=== PATIENT | female | born 1940 | race Caucasian/White ===

== ENCOUNTER → 2020-03-23 17:18 | Outpatient (CLI) | payer MEDICARE, OTHER, SELFPAY | PROVIDERS: Family Provider Physician Assistant Medical; PCP Physician Assistant Medical; Referring Provider Orthopaedic Surgery; Visit Provider Orthopaedic Surgery | DX: M25.561 Pain in right knee (principal); Z53.9 Procedure and treatment not carried out, unspecified reason ==

== ENCOUNTER → 2020-03-27 18:12 | Outpatient (CLI) | payer MEDICARE, OTHER, SELFPAY ==
--- NOTE | 2020-03-27 | DI.MRI.S_ITS ---
PROCEDURE: MR KNEE RT WO CON INDICATIONS: CHRONIC RIGHT KNEE PAIN TECHNIQUE: Noncontrast sagittal PD fast spin echo and T2 fast spin echo with fat saturation, sagittal 3-D FLASH with fat saturation; coronal T1 spin echo and PD fast spin echo with fat saturation, and axial PD fast spin echo with fat saturation through the knee. COMPARISON: None. FINDINGS: Image quality: Excellent. Menisci: There is lateral meniscal extrusion and severe degenerative tear. The lateral meniscus is truncated. Ill-defined tear is seen in the body and posterior whole of the medial meniscus. The meniscal root ligaments appear intact. Cruciate ligaments: The anterior and posterior cruciate ligaments appear intact. Medial structures: The medial collateral ligament appears intact. The semimembranosus tendon insertions and meniscocapsular junction appear intact. Visualized portions of the pes anserinus tendons appear normal. No abnormal bursal fluid. Lateral structures: The lateral collateral ligament and the biceps femoris tendon appear intact. The popliteus tendon appears normal. Iliotibial band appears normal. Anterior structures: The quadriceps and patellar tendons appear intact. Patellar alignment is normal. No femoral trochlear dysplasia or ventral trochlear prominence. No edema in the infrapatellar fat pad. Bones and cartilage: No fractures. There is severe cartilage thinning in the lateral femorotibial compartment with bone on bone. Full-thickness cartilage fissures are also present in the medial femorotibial compartment. Mild cartilage loss of the patellofemoral compartment. Joint space: There is small to moderate knee joint esion. A small Serrano's cyst is present with adjacent fluid signal suggesting leakage. Normal appearing synovial plicae are incidentally noted. IMPRESSION: 1. Severe degenerative tear of the lateral meniscus. 2. Ill-defined tear of the body and posterior horn of the medial meniscus. 3. Severe loss of cartilage in the lateral femorotibial compartment with [id number]. Full-thickness cartilage fissures are also present in the medial femorotibial compartment. 4. [id number] knee joint effusion. 5. Small Serrano cyst. Dictated by: Tita Alexandra M.D. on 03/27/2020 at 20:13 Approved by: Tita Alexandra M.D. on 03/28/2020 at 9:30
== END ==
PROVIDERS: Family Provider Physician Assistant Medical; PCP Physician Assistant Medical; Referring Provider Orthopaedic Surgery; Visit Provider Orthopaedic Surgery
DX: M25.561 Pain in right knee (principal); S83.281A Other tear of lateral meniscus, current injury, right knee, initial encounter; S83.241A Other tear of medial meniscus, current injury, right knee, initial encounter; M25.461 Effusion, right knee; M71.21 Synovial cyst of popliteal space [Baker], right knee; G89.29 Other chronic pain
CPT/HCPCS: 73721

== ENCOUNTER → 2020-04-04 14:43 | Outpatient (CLI) | payer MEDICARE, OTHER, SELFPAY ==
[2020-04-04 15:14] LABS: Bacteria Urine None Seen
[2020-04-04 16:23] LABS: Add Manual Diff / Slide Review NO; Basophils Absolute Auto 0 /uL (0-100); Basophils Percent Auto 0.7 % (0-2); Eosinophils Absolute Auto 400 /uL (0-450); Hematocrit 39.7 % (36-46); Hemoglobin 13.6 g/dL (12.0-16.0); Lymphocytes Absolute Auto 1500 /uL (1100-4500); Mean Corpuscular HGB Conc 34.2 % (30-36); Mean Corpuscular Hemoglobin 32.3 PG (26-34); Mean Corpuscular Volume 94.4 fL (80-100); Monocytes Absolute Auto 800 /uL (0-900); Monocytes Percent Auto 13.6 % (3-14); Neutrophils Absolute Auto 3200 /uL (1500-7000); Neutrophils Percent Auto 54.7 % (50-75); Platelet Count 198 X10^3/uL (150-400); Red Blood Cell Count 4.21 X10^6/uL (4.0-5.2); Red Cell Distribution Width 13.7 % (11.6-14.8); White Blood Cell Count 5.9 X10^3/uL (4.5-11.0)
[2020-04-04 17:25] LABS: BUN Creatinine Ratio 22.1 (6-22); Blood Urea Nitrogen 17 mg/dL (7-17); Calcium 9.5 mg/dL (8.4-10.2); Carbon Dioxide 25 mmol/L (22-32); Chloride 97 mmol/L (98-107); Estimated Glomerular Filt Rate > 60.0 mL/min (>60); Glucose 88 mg/dL (80-110); HEMOLYSIS < 15 (0-50); Potassium 4.3 mmol/L (3.4-5.1); Sodium 130 mmol/L (137-145)
[2020-04-04 17:30] LABS: Appearance Urine UA CLEAR; Bilirubin Urine UA NEGATIVE (NEGATIVE); Color Urine UA YELLOW; Glucose Urine UA NEGATIVE (Negative); Ketones Urine UA NEGATIVE (NEGATIVE); Leukocyte Esterase Urine UA NEGATIVE (NEGATIVE); Nitrite Urine UA NEGATIVE (Negative); Occult Blood Urine UA NEGATIVE (Negative); Protein Urine UA NEGATIVE (Negative); Specific Gravity Urine UA <=1.005 (1.000-1.035); Urobilinogen Urine UA 0.2 E.U./dL (0.2)
[2020-04-04 17:32] LABS: Culture Indicated Urine Cult Not Indicated; RBC Urine 0-1/HPF (0-5/HPF); Squamous Epithelial Cell Urine 0-1 /HPF (0-5/HPF); WBC Urine 0-1/HPF (0-5/HPF)
[2020-04-04 18:14] LABS: Hemoglobin A1C% w Est Avg Glu 5.7 % (4.0-6.0)
== END ==
PROVIDERS: Family Provider Physician Assistant Medical; PCP Physician Assistant Medical; Referring Provider Orthopaedic Surgery; Visit Provider Orthopaedic Surgery
DX: Z01.818 Encounter for other preprocedural examination (principal); Z01.812 Encounter for preprocedural laboratory examination; R73.9 Hyperglycemia, unspecified; N39.0 Urinary tract infection, site not specified
CPT/HCPCS: 36415; 80048; 81001; 83036; 85025; 93005

== ENCOUNTER → 2020-04-18 11:02 | Outpatient (CLI) | payer MEDICARE, OTHER, SELFPAY ==
[2020-04-19 15:12] LABS: COVID19 Sendout Not Detected (Not Detect)
== END ==
PROVIDERS: Family Provider Physician Assistant Medical; PCP Physician Assistant Medical; Visit Provider Physician Assistant
DX: Z01.812 Encounter for preprocedural laboratory examination (principal)
CPT/HCPCS: 87635

== ENCOUNTER 2020-04-20 06:44 | Day surgery (SDC) | payer MEDICARE, OTHER, SELFPAY ==
[2020-04-13 11:53] VITALS: BMI 26.6
[2020-04-20] VITALS (14 sets, daily range): BP systolic 94–164; BP diastolic 47–75; PULSE 49–64; RESP 11–17; TEMP 36.1–36.7; O2SAT 94–98; BMI 26.6
--- NOTE | 2020-04-20 06:54 | DI.RAD.S_ITS ---
PROCEDURE: XR KNEE RT 1TO2V INDICATIONS: post op knee TECHNIQUE: 2 views of the knee were acquired. COMPARISON: None. FINDINGS: Bones: No fractures or dislocations. No suspicious bony lesions. Normal alignment after right total knee arthroplasty with surgical drain overlying the operative bed anteriorly. Soft tissues: No joint effusion. No suspicious soft tissue calcifications. IMPRESSION: Normal postoperative appearance after right total knee arthroplasty. Normal alignment established. Dictated by: Jin Ku M.D. on 04/20/2020 at 10:11 Approved by: Jin Ku M.D. on 04/20/2020 at 10:11
[2020-04-20] MEDS: VANCOMYCIN 1,000 MG/200 ML PIGGYBACK 200 MG IV ×2 (07:12→11:09)
[2020-04-20] MEDS: PREGABALIN 75 MG CAPSULE PO (07:19)
[2020-04-20] MEDS: CELECOXIB 200 MG CAPSULE PO (07:19)
[2020-04-20] MEDS: LACTATED RINGERS 1,000 ML 42 ML IV ×2 (07:19→09:24)
[2020-04-20] MEDS: ACETAMINOPHEN 325 MG TABLET 975 MG PO (07:20)
--- NOTE | 2020-04-20 07:42 | PM.HP.1 ---
History of Present Illness History of Present Illness Date Patient Seen: 04/20/20 Time Patient Seen: 07:42 Chief complaint: [id number] Right Total Knee Arthroplasty *OPB* Narrative: Gayatri has ongoing significant right knee pain and interferes with her activities and her ability to walk. She is using a walker and does note restricted motion. 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) Family & Social History Social History: household members spouse Prior Living Arrangements House Safety & Behavioral: Feels Safe in Current Yes Environment Been Physically Hurt or No Threatened By a Person Suicidal Ideation Description None Suicide Plan Description No Plan Tobacco & Substance use: Smoking Status Never smoker alcohol intake current alcohol intake frequency holiday/special occasion Substance Use Type does not use Meds Home Medications and Allergies Home Medications Medication Instructions Recorded Confirmed Type aspirin 81 mg PO BID 04/13/20 04/20/20 History lisinopril 2.5 mg PO BEDTIME 04/13/20 04/20/20 History metoprolol succinate 25 mg PO DAILY 04/13/20 04/20/20 History rosuvastatin 40 mg PO BEDTIME 04/13/20 04/20/20 History triamterene-hydrochlorothiazid 1 tab PO DAILY 04/13/20 04/20/20 History Allergies Allergy/AdvReac Type Severity Reaction Status Date / Time No Known Drug Allergies Allergy Verified 04/20/20 07:02 Review of Systems Review of Systems Narrative: No change in her overall health pre please see previously attached records denies recent fever cough chest pain or lung problems Exam Vital Signs (past 8 hours): - 04/20/20 07:04 Temperature 97.8 F Pulse Rate 64 Respiratory Rate 16 Blood Pressure 149/75 H Pulse Oximetry 98 Oxygen Delivery Method Room Air Narrative Exam Narrative: HEENT is benign lungs are clear, cor regular rate and rhythm abdomen soft and benign the right knee shows crepitation with range of motion she has valgus deformity, range of motion 0-120, calfs are soft bilaterally Assessment & Plan Assessment & Plan narrative: Severe right knee osteoarthritis plan is for right total knee arthroplasty. PAR discussed in detail with the patient and her .
--- NOTE | 2020-04-20 07:46 | PM.OP.1 ---
Operative Date/Time/Diagnoses Date of procedure: 04/20/20 Time of procedure: 07:59 Pre-op diagnosis: Right knee OA Post-op diagnosis: same Procedure & Clinicians Procedure: Right total knee arthroplasty Same procedure as scheduled: Yes Indications: The patient has had progressively worsening right knee pain with radiographic changes consistent with arthritis. Non-operative management has failed and the patient has requested total knee replacement. The risks, benefits and alternatives to surgery were discussed with the patient prior to proceeding. Risks discussed included, but were not limited to, failure to relieve pain, stiffness, infection, nerve damage, deep venous thrombosis, pulmonary embolism, stroke, coma, heart attack, permanent paralysis and , as well as the potential need for eventual revision of the prosthetic. Surgeon: Maura Vides Yard Warehouse Worker: Burke Interiano Anesthesia Type: General and Spinal Operative Notes Findings: Severe right knee osteoarthritis, good stability Closure Type: primary Specimen(s): none sent Prosthetic devices, grafts, tissues, transplants, or devices: Vides and Nephew [place], [place] BCS 2 size 6 femur, size 5 tibia, +9 poly and 35 mm patella Estimated Blood Loss (mL): 250 Blood products transfused: none Tourniquet time (min): 60 Procedure in detail: The patient was seen in the pre-operative area, where the patient identified the right knee as the operative site and this was marked with my initials. The patient received pre-operative antibiotics, and was taken to the operating room and placed on the operative table in the supine position. After satisfactory anesthesia, a part time out was performed. The right leg was encircled with a tourniquet about the proximal thigh, and the leg was prepared from the toes to the tourniquet with ChloroPrep in the usual fashion and draped through sterile drapes. The leg was elevated and exsanguinated with Eschmark bandage and the tourniquet inflated to [250] mmHg pressure. The knee was approached through an approximately 18 cm incision centered over the patella and carried into the knee through a medial parapatellar arthrotomy. A portion of the medial and lateral meniscus was resected. Soft tissue was carefully mobilized around the patella the patella was measured with a caliper. Bone was resected from the patella and the patellar height was reconstituted with up an appropriate sized patellar component. A cover was then placed on the patella. A small amount of additional medial and lateral meniscus was resected. The visionary guide fit well to the distal femur. It looked like an appropriate distal femoral cut and the cut was made without difficulty. The rotation was assessed and the appropriate size femoral guide was placed on the distal femur and finishing cuts were made. There was no evidence of notching. The anterior, posterior and chamfer cuts were then made. The posterior osteophytes and soft tissues were then removed. The posterior capsule was injected with part of a mixture of 60 ml 0.25% Marcaine mixed with 20 ml Exparel for post operative pain control. The remainder of this mixture was injected into the capsule and subcutaneous tissues during cement curing. The tibia was prepared and the visionaire guide fit well to the distal tibia. The rotation was assessed. The patient was placed in extension residual medial and lateral meniscus as well as any residual bone was carefully resected. [No] additional tibia was resected. Hemostasis was achieved especially posteriorly. Additional local was injected into the posterior capsule. The extension gap was assessed and additional releases for gap balancing were performed as necessary. It was checked with the gap rent control office manager. The femoral component was trial was placed and the notch was finished. Trial tibial and femoral components were then placed and the knee placed through a range of motion. Range of motion was [0-130], with good stability throughout the range. The trials were then removed, and the tibia was finished. The bone was prepared with pulsatile lavage, and dried with a sponge. Cement was applied and the final prosthetics placed. Excess cement was removed during and after cement curing. A brief Betadine soak was performed. After confirming there was no extruded cement posteriorly, the final tibial insert was placed. The knee was copiously irrigated and the tourniquet deflated. Hemostasis was obtained with the Bovie. A drain was placed and brought out superolaterally. The capsule was closed with interrupted Vicryl suture. The subcutaneous layer was closed with barbed sutures, and the skin with a running 3-0 V-Lock suture and Surgical glue. An Aquacel Ag dressing was applied and the patient was taken to recovery having tolerated the procedure well. Complications: none Post-operative Condition: stable Disposition: Acute Care Plan for aftercare: The patient will be maintained on a standard total knee replacement protocol with weight bearing as tolerated. The patient will receive aspirin and sequential compression devices for DVT prophylaxis. The patient will be discharged home when safe for the home environment.
[2020-04-20] MEDS: CEFAZOLIN 2 GM/100 ML FROZ.PIGGY IV ×2 (07:48→16:22)
[2020-04-20] MEDS: TRANEXAMIC ACID 1,000 MG VIAL 1000 MG IV (08:12)
--- NOTE | 2020-04-20 08:25 | SUR.OPER ---
Supine on padded OR bed. Pillow under head, arms secured on padded armboards <90 degree abduction. Safety belt across torso. Non-operative leg secured with tape over blanket over lower leg. Operative leg secured in DeMayo/Dewayne positioner. Foam padded brace at thigh of operative leg.
[2020-04-20] MEDS: BUPIVACAINE LIPOSOME 266 MG/20 ML VIAL INJ (08:28)
[2020-04-20] MEDS: BUPIVACAINE 0.25% W/ EPI 30 ML VIAL 60 ML INJ (08:30)
--- NOTE | 2020-04-20 10:01 | SUR.PHASEI ---
Stable PACU stay, report attempted, RN unavailable to call back.
--- NOTE | 2020-04-20 10:28 | SUR.PHASEI ---
No return phone call, asked JYOTHI Capellan if face to face report ok, stated yes, pt transported up to room 226, bed locked,SCD's on and call light in reach. Pt left in stable condition.
[2020-04-20] MEDS: LACTATED RINGERS 1,000 ML 100 ML IV ×2 (11:09→22:57)
[2020-04-20] MEDS: IBUPROFEN 400 MG TABLET PO ×3 (14:26→22:05)
[2020-04-20] MEDS: ACETAMINOPHEN 325 MG TABLET 650 MG PO ×2 (14:27→21:59)
--- NOTE | 2020-04-20 15:03 | PC.NURSE ---
Pt to floor from PACU @ 1030; continuous pulse ox, RA=97%; denies pain; sensation to foot s/p spinal; Miguel Angel wrap and aquacell to right knee; SCDs active; tolerating ice water, in room
--- NOTE | 2020-04-20 15:43 | PT.IIE ---
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 Pt is an effective verbal communicator Mobility and Gait Pt is an independent ambulator who was walking up to 1.5 miles at a time until three weeks ago. Distance has decreased due to pain. Activities of Daily Living and IADL's Independent. Social History Household Members spouse Living Arrangements House Number of Floors (Floors) One Floor Number of Stairs To Enter/Railing? level entry Home Environment Standard Height Toilet,Walk in Shower,Built-In Shower Seat Home Equipment Straight Cane,Hand Held Shower ,Grab Bars In Shower Employment Status Retired Additional Social History Comment Pt lives with her spouse, Bola, who has MS and mobilizes with a FWW. Pt's daughter, Genevieve, lives in [place] and will be able to provide assist at discharge although she is not planning to stay with the patient. M2 PT-IP Current Condition Start: 04/20/20 12:45 Freq: NEEDED Status: Active Protocol: Document 04/20/20 15:27 AW (Rec: 04/20/20 15:43 AW [id number]) Physical Therapy Current Condition Current Condition Evaluation Date 04/20/20 Treatment Diagnosis R TKA; difficulty in walking Onset Date 04/20/20 Weight Bearing Status Weight Bearing Status Weight Bear as Tolerated M3 PT-IP Subjective Start: 04/20/20 12:45 Freq: NEEDED Status: Active Protocol: Document 04/20/20 15:27 AW (Rec: 04/20/20 15:43 AW [id number]) Subjective Physical Therapy Visit Type Type Initial Evaluation Visit Start Time 14:15 Visit Stop Time 14:47 Total Visit Minutes 32 Notes Pt's spouse, Bola, present throughout session Physical Therapy Visit Comments Patient Comments Pt is groggy but willing to participate with PT Patient Goals Pt plans to discharge home with her daughter providing assist Therapy Pain Assessment Pain When Pain Assessed During Mobility Pain Present Pain Present Denied Pain M4 PT-IP Mobility and Gait Start: 04/20/20 12:45 Freq: NEEDED Status: Active Protocol: Document 04/20/20 15:27 AW (Rec: 04/20/20 15:43 AW [id number]) PT-Bed Mobility Assessment Supine to Sit Supine to Sit Standby Assistance Scooting Scooting to Edge of Bed Standby Assistance PT-Transfer Assessment Sit to and From Stand Sit to and from Stand Contact Guard Assistance Equipment Transfer Assistive Device Gait Belt,Front Wheeled Walker Orthotic/Prosthetic Devices or Brace: No Transfers Transfer Destination Chair Transfer Technique pt ambulated with FWW Transfer Ability Level of Assist Contact Guard Assistance Comments Mobility Comments Pt completed bed mobility SBA and required only CGA for transfer and short bout ambulation with FWW. Gait Assessment Gait Gait Assistance Required: Contact Guard Assist Distance (Feet) 12 Able to Maintain Weight Bearing Status Yes During Gait Assistive Devices Assistive Device Gait Belt,Front Wheeled Walker Gait Deviations General Gait Pattern Antalgic,Decreased Stride Length,Decreased Feet Clearance,Flexed Trunk,Step-to Gait Factors Limiting Gait Function Factors Limiting Gait Function Decreased Activity Tolerance, Decreased Sensation,Decreased Strength,Limited Range of Motion,Poor Balance Comments Gait Comments Pt required max cues for quad activation right side. Pt was slightly unsteady due to lack of joint position sense so ambulation assessment was short. Stair Climbing Assessment Comments Stair Climbing Comments Not assessed. No stairs at home PT-Balance Assessment Sitting Balance and Reactions Static Sitting Balance Ability Good Dynamic Sitting Balance Ability Good Standing Balance and Reactions Static Standing Balance Ability Good Dynamic Standing Balance Ability Good Device Used FWW M5 PT-IP Objective Assessments Start: 04/20/20 12:45 Freq: NEEDED Status: Active Protocol: Document 04/20/20 15:27 AW (Rec: 04/20/20 15:43 AW [id number]) Orientation Orientation/Cognition Level of Alertness Alert Orientation Name Language Function Ability No Deficits Noted Safety Awareness Understands Safety Issues Memory Description No Deficits Noted Gross Range of Motion Upper Extremity ROM Assessment Within Functional Limits Lower Extremity ROM Assessment Right Impaired Strength Upper Extremity Strength Assessment Within Functional Limits Lower Extremity Strength Assessment Right Impaired Comments Strength Comments LLE grossly 5/5 Coordination Assessment Gross Coordination Gross Coordination WNL Sensation Assessment Sensation Gross Sensation Right LE Impaired Proprioception (Position) Impaired Muscle Tone Muscle Tone WNL Yes M6 PT-IP Treatment Start: 04/20/20 12:45 Freq: NEEDED Status: Active Protocol: Document 04/20/20 15:27 AW (Rec: 04/20/20 15:43 AW [id number]) Physical Therapy Treatment Exercises Exercises Ankle Pumps,Quad Sets,Heel Slides,Passive Knee Extension Hang Education Education Provided Precautions,Weight Bearing Status,Post-Op Packet,Safety Other Treatments Other Treatment Performed Provided education on role of PT, plan of care, weightbearing status, and safe use of FWW M7 PT-IP Assessment and Plan Start: 04/20/20 12:45 Freq: NEEDED Status: Active Protocol: Document 04/20/20 15:27 AW (Rec: 04/20/20 15:43 AW [id number]) PT Summary Assessment and Plan Potential Rehabilitation Potential Good Status of Condition at Evaluation Evolving Summary Impairments ROM,Strength,Balance,Bed Mobility,Transfers,Gait, Activity Tolerance Assessment Summary Gayatri is a 79 yo woman seen for PT evaluation on POD0 following R TKA. At baseline, she is independent with all mobility and lives with her spouse who mobilizes with a FWW. On evaluation, pt required CGA for all mobility but has limited proprioception at this time. Pt is expected to progress and be ready for safe discharge to home with her daughter providing assist as needed and outpatient PT. Pt does have FWW in the room, but it is unsteady. She will need a new FWW for discharge. Goals Bed Mobility Goal Standby Assistance Transfer Goal Standby Assistance,Front Wheeled Walker Gait Goal Standby Assistance,Front Wheel Walker Gait Distance 200 Days to Meet Goals 2 Frequency of Treatment Frequency Of Treatment Twice a Day Treatment Plan Physical Therapy Treatment Plan Bed Mobility Training,Transfer Training,Gait Training, Therapeutic Exercise,Balance Retraining,Post Op Education, Discharge Planning,Hot or Cold Pack Other Recommendations and Next Treatment issue FWW if discharging; Focus progress gait with FWW Recommendations To Nursing Amount of Assist Needed 1 Person Assist Discharge Recommendations PT Discharge Recommendations Home with Assistance, Outpatient PT Transportation Needs at Discharge Private Vehicle
--- NOTE | 2020-04-20 15:55 | PC.NURSE ---
1530- Heart rate at 48 bpm when vitals taken. EKG taken in March of this year shows Sinus Stephen at a rate of 58. Patient had spinal anesthesia for her Total knee today. Patient asymtomatic at this time with a heart rate of 48 to low 60's. Will monitor.
[2020-04-20] MEDS: ROSUVASTATIN 10 MG TABLET 40 MG PO (21:59)
[2020-04-20] MEDS: DOCUSATE 100 MG CAPSULE PO (21:59)
[2020-04-20] MEDS: ASPIRIN EC 81 MG TABLET PO (21:59)
[2020-04-20] MEDS: lisinopriL 5 MG TABLET 2.5 MG PO (22:00)
[2020-04-20] MEDS: OXYCODONE/ACETAMINOPHEN 5/325 TABLET 1 TAB PO (23:01)
[2020-04-21] VITALS: BP 132/63; PULSE 55; RESP 16; TEMP 36.2; O2SAT 95
[2020-04-21] MEDS: IBUPROFEN 400 MG TABLET PO ×4 (00:47→13:13)
[2020-04-21] MEDS: CEFAZOLIN 2 GM/100 ML FROZ.PIGGY IV (00:48)
[2020-04-21 05:46] LABS: Hematocrit 35.9 % (36-46); Hemoglobin 12.1 g/dL (12.0-16.0)
[2020-04-21 05:58] VITALS: BP 132/63; PULSE 58; RESP 16; TEMP 36.1; O2SAT 98
[2020-04-21 09:00] VITALS: BP 129/55; PULSE 66; RESP 16; TEMP 36.7; O2SAT 98
[2020-04-21] MEDS: ACETAMINOPHEN 325 MG TABLET 650 MG PO (09:06)
[2020-04-21] MEDS: ASPIRIN EC 81 MG TABLET PO (09:10)
[2020-04-21] MEDS: DOCUSATE 100 MG CAPSULE PO (09:10)
[2020-04-21 09:35] VITALS: PULSE 73; RESP 16
--- NOTE | 2020-04-21 09:37 | P.DS_ITS ---
History of Present Illness History of Present Illness Date Patient Seen: 04/21/20 Time Patient Seen: 09:37 Chief complaint: [id number] Right Total Knee Arthroplasty *OPB* Narrative: Gayatri has ongoing significant right knee pain and interferes with her activities and her ability to walk. She is using a walker and does note restricted motion. Discharge Providers Provider Discharge Date: 04/21/20 Primary care physician: Lucía Lynne PA-C Consults: 04/20/20 06:54 Consult to Anesthesiology Routine Comment: Consulting Provider: Anesthesiologist Reason for consultation: Regional block for post operative pain control 04/20/20 10:25 Consult to Discharge Planning Routine Comment: Consult to Physical Therapy Evaluate & Treat Comment: Physician Instructions: postop TKA protocol Consult to Respiratory Therapy Evaluate & Treat Comment: Physician Instructions: Evaluate and treat Discharge provider: Maura Vides MD Summary Hospital Course Discharge Diagnosis: Right knee OA. Right total knee arthroplasty Hospital Course: She was taken the operating room and underwent a right total knee arthroplasty. She tolerated the procedure well. She was mobilized with p hysical therapy and nursing and was noted to be up and ambulating without difficulty. Status at Discharge Cognitive/behavioral status at discharge: oriented Functional status at discharge: uses cane/walker Overall status at discharge: patient is progressing back to baseline Time Spent with Patient Time spent: Less than 30 minutes Exam Vital Signs (past 8 hours): - 04/21/20 05:58 04/21/20 09:00 04/21/20 09:35 Temperature 97.0 F L 98.1 F Pulse Rate 58 L 66 73 Respiratory Rate 16 16 16 Blood Pressure 132/63 129/55 L Pulse Oximetry 98 98 Oxygen Delivery Method Room Air Oxygen Flow Rate 0 Narrative Exam Narrative: She is alert she is oriented HEENT is benign, her right leg she is able to do an active straight leg raise has minimal pain with range of harshad on, her calf is soft bilaterally had her dressings intact. Objective Labs Result Diagrams: 04/21/20 05:25 Labs: Laboratory Results - last 24 hr 04/21/20 05:25 Hgb 12.1 Hct 35.9 L Discharge Plan Discharge Plan Patient Disposition: Home Discharge Med Rec/Prescriptions Prescriptions: New oxycodone-acetaminophen 5-325 mg Tablet 1 tab PO 1-2XD PRN (Reason: Pain, Severe (7-10)) Qty: 10 RF: 0 ibuprofen 400 mg Tablet 400 mg PO Q4HR Qty: 90 RF: 0 Continued aspirin 81 mg Tablet,Delayed Release (Dr/Ec) 81 mg PO BID RF: 0 triamterene-hydrochlorothiazid 37.5-25 mg Tablet 1 tab PO DAILY RF: 0 metoprolol succinate 25 mg Tablet Extended Release 24 Hr 25 mg PO DAILY RF: 0 lisinopril 2.5 mg Tablet 2.5 mg PO BEDTIME RF: 0 rosuvastatin 40 mg Tablet 40 mg PO BEDTIME RF: 0 Discharge Orders: Discharge (Order); Ordered 04/21/20 Ordered By: Maura Vides Provider Discharge Instructions Diet: Diet as Tolerated Activity: Walk multiple times a day. Elevate year leg several times a day. Cold/Heat Therapy: Ice multiple times a day. Other treatments: Removed Miguel Angel wrap okay to use if having swelling issues. Skin/Wound/Dressing Care Report to your healthcare provider any signs of infection, such as:: chills, fever, night sweats, increased pain, unusual drainage and unusual redness Dressing: Keep dressing on. Okay to shower. Visit Report/Discharge Packet Instructions: DI for Knee Replacement Stand Alone Forms: Surgery Discharge Discharge Data Primary Care Provider: Lucía Lynne Attending Provider: Maura Vides VTE Deep Vein Thrombosis/Pulmonary Embolism Present on Admission: No
--- NOTE | 2020-04-21 10:15 | PT.IPTN ---
Current Diagnoses Unilateral primary osteoarthritis, right knee (04/20/20) Surgery Performed Operation Date: 04/20/20 07:45 Actual Procedures p Total Knee Arthroplasty(Right) - Maura Vides MD Physical Therapy Treatment Note M2 PT-IP Current Condition Start: 04/20/20 12:45 Freq: NEEDED Status: Active Protocol: Document 04/20/20 15:27 AW (Rec: 04/20/20 15:43 AW [id number]) Physical Therapy Current Condition Current Condition Evaluation Date 04/20/20 Treatment Diagnosis R TKA; difficulty in walking Onset Date 04/20/20 Weight Bearing Status Weight Bearing Status Weight Bear as Tolerated M3 PT-IP Subjective Start: 04/20/20 12:45 Freq: NEEDED Status: Active Protocol: Document 04/21/20 09:48 KS (Rec: 04/21/20 12:51 KS [id number]) Subjective Physical Therapy Visit Type Type Treatment Note Visit Start Time 09:48 Visit Stop Time 10:15 Total Visit Minutes 27 Number of PULLMAN CAR CLERK Visits 1 Physical Therapy Visit Comments Patient Comments Pt agreeable to work w/ therapy. Patient Goals Pt plans to discharge home with her daughter providing assist Therapy Pain Assessment Pain When Pain Assessed During Mobility Pain Present Pain Present Denied Pain M4 PT-IP Mobility and Gait Start: 04/20/20 12:45 Freq: NEEDED Status: Active Protocol: Document 04/21/20 09:48 KS (Rec: 04/21/20 12:51 KS [id number]) PT-Bed Mobility Assessment Supine to Sit Supine to Sit Standby Assistance Sit to Supine Sit to Supine Standby Assistance Scooting Scooting to Edge of Bed Standby Assistance PT-Transfer Assessment Sit to and From Stand Sit to and from Stand Contact Guard Assistance Equipment Transfer Assistive Device Gait Belt,Front Wheeled Walker Orthotic/Prosthetic Devices or Brace: No Transfers Transfer Destination Bed Transfer Technique pt ambulated with FWW Transfer Ability Level of Assist Contact Guard Assistance Comments Mobility Comments Pt completed 1x10 bilateral ankle pumps, quad sets, heel slides, and glute sets. SBA for sup<>sit and scooting to EOB. CGA for sit<>stand and proper technique and hand placement w/o cues. Pt then performed 30 seconds weight shifting followed by [address] before ambulating ~100 ft w/ FWW and SBA to CGA. Pt demonstrated good use of FWW and required min cues for quad activation and equal step length. Pt returned to room and stand<>sit<>sup and repositioned herself in bed SBA. Dispensed FWW for home use. Pt left in bed w/ all needs in reach. Gait Assessment Gait Gait Assistance Required: Standby Assistance,Contact Guard Assist Distance (Feet) 100 Able to Maintain Weight Bearing Status Yes During Gait Assistive Devices Assistive Device Gait Belt,Front Wheeled Walker Gait Deviations General Gait Pattern Antalgic,Decreased Stride Length,Decreased Feet Clearance,Flexed Trunk,Step-to Gait Factors Limiting Gait Function Factors Limiting Gait Function Decreased Activity Tolerance, Decreased Sensation,Decreased Strength,Limited Range of Motion,Poor Balance Comments Gait Comments Pt ambulated ~100 ft w/ FWW and SBA to CGA and min cues for R side quad activation. Proper use of FWW demonstrated . Stair Climbing Assessment Comments Stair Climbing Comments Not assessed. No stairs at home PT-Balance Assessment Sitting Balance and Reactions Static Sitting Balance Ability Good Dynamic Sitting Balance Ability Good Standing Balance and Reactions Static Standing Balance Ability Good Dynamic Standing Balance Ability Good Device Used FWW M5 PT-IP Objective Assessments Start: 04/20/20 12:45 Freq: NEEDED Status: Active Protocol: Document 04/20/20 15:27 AW (Rec: 04/20/20 15:43 AW [id number]) Orientation Orientation/Cognition Level of Alertness Alert Orientation Name Language Function Ability No Deficits Noted Safety Awareness Understands Safety Issues Memory Description No Deficits Noted Gross Range of Motion Upper Extremity ROM Assessment Within Functional Limits Lower Extremity ROM Assessment Right Impaired Strength Upper Extremity Strength Assessment Within Functional Limits Lower Extremity Strength Assessment Right Impaired Comments Strength Comments LLE grossly 5/5 Coordination Assessment Gross Coordination Gross Coordination WNL Sensation Assessment Sensation Gross Sensation Right LE Impaired Proprioception (Position) Impaired Muscle Tone Muscle Tone WNL Yes M6 PT-IP Treatment Start: 04/20/20 12:45 Freq: NEEDED Status: Active Protocol: Document 04/21/20 09:48 KS (Rec: 04/21/20 12:51 KS [id number]) Physical Therapy Treatment Exercises Exercises Ankle Pumps,Gluteal Sets,Quad Sets,Heel Slides Education Education Provided Precautions,Weight Bearing Status,Post-Op Packet,Safety Other Treatments Other Treatment Performed Discussed pt set up for OPPT. Dispensed FWW. M7 PT-IP Assessment and Plan Start: 04/20/20 12:45 Freq: NEEDED Status: Active Protocol: Document 04/21/20 09:48 KS (Rec: 04/21/20 12:51 KS [id number]) PT Summary Assessment and Plan Potential Rehabilitation Potential Good Status of Condition at Evaluation Evolving Summary Impairments ROM,Strength,Balance,Bed Mobility,Transfers,Gait, Activity Tolerance Progress Towards Goals Progressing Toward Goals Assessment Summary Pt showed progress for tolerance for activity today and was able to tolerate bilateral LE strengthening exercises, weight shifting, marching in place, 100 ft ambulation, and bed mobility. Pt is SBA for bed mobility and SBA to CGA for transfers and ambulation. Pt demonstrated good safety awareness and proper techniques and hand placement when transferring. She will benefit from outpatient rehab to improve strength and ROM. Goals Bed Mobility Goal Standby Assistance Transfer Goal Standby Assistance,Front Wheeled Walker Gait Goal Standby Assistance,Front Wheel Walker Gait Distance 200 Days to Meet Goals 2 Frequency of Treatment Frequency Of Treatment Twice a Day Treatment Plan Physical Therapy Treatment Plan Bed Mobility Training,Transfer Training,Gait Training, Therapeutic Exercise,Balance Retraining,Post Op Education, Discharge Planning,Hot or Cold Pack Recommendations To Nursing Amount of Assist Needed 1 Person Assist Discharge Recommendations PT Discharge Recommendations Home with Assistance, Outpatient PT Transportation Needs at Discharge Private Vehicle
--- NOTE | 2020-04-21 10:22 | PC.NURSE ---
Addendum entered by Odalys Rodriguez R.N. 04/21/20 12:56: Patients iv and hemovac taken out. Patient tolerated this well and had 50cc out of her hemovac. Original Note: Patient is A&Ox3, pleasant and cooperative with care. She has an aquacel dressing that is cdi. Patient is moving well with her walker. She has been discharged and will be going home around 1230.
--- NOTE | 2020-04-21 12:33 | CM.DANOTE ---
Discharge Planning/Care Management DCP: assessment: case received, EMR reviewed. Discussed in Team Rounds. Pt is a 79 year old female who admitted yesterday for a planned R TKA Payer: Medicare and [facility] Admission status: in review. A d/c order is in place from Dr. Vides. PT has cleared her for d/c to home setting with need for a FWW (order now obtained and this will be issues to pt from the Therapy vendor consignment closet at pt's request. JYOTHI Morrow reports no concerns re the d/c. Pt is waiting for her paperwork to be completed and then she will go home to [place] in company of her . Advanced directive, confirm from FAMILY Start: 04/20/20 11:33 Freq: Q24H Status: Active Protocol: Document 04/20/20 11:33 JDG (Rec: 04/20/20 14:14 JDG [id number]) Advance Directive, confirm on record Time 14:14 Person contacted Spouse Copy received No CM Discharge Assessment Start: 04/21/20 11:11 Freq: Status: Active Protocol: Document 04/21/20 12:29 ITV (Rec: 04/21/20 12:30 ITV [id number]) Discharge Planning Assessment Advance Directives? Yes Advance Directives on File No History Provided By Medical Record Prior Living Arrangements House Household Members spouse Document 04/21/20 12:33 ITV (Rec: 04/21/20 12:33 ITV [id number]) Discharge Planning Assessment Advance Directives? Yes Advance Directives on File No History Provided By Medical Record Prior Living Arrangements House Household Members spouse Is patient alert and oriented? Yes Review Status In Process Pre-Anesthesia Assessment Start: 04/13/20 11:53 Freq: Status: Active Protocol: Document 04/13/20 11:53 CAB (Rec: 04/13/20 12:35 CAB [id number]) Pre-Anesthesia Assessment Patient Information Reviewed Via Phone Assessment Assessment Completed With Patient Diagnostic Results BMP/CMP,CBC,EKG Comment Labs/EKG @ 04/04/20-COVID not scheduled yet, pt to schedule Primary Care Provider Lucía Lynne Seen Specialist in Last 12 Months Yes Specialist Seen Oncologist,Orthopedist Primary Language Ukrainian [employer] Certified Internetwork Expert Required No Height 162.56 cm Weight 70.307 kg Body Mass Index (BMI) 26.6 Hearing Ability Hard of Hearing,Use of Hearing Aid Visual Impairment No Limitations Dentition Type Teeth, Natural Present Barriers to Learning None Other Aids No Hx Anesthesia Reactions No Hx Family Anesthesia Reaction No Hx Malignant Hyperthermia No Hx Blood Transfusions No Anesthesia Review Requested No alcohol intake current alcohol intake frequency holidays/special occasions only Smoking Status Never smoker Substance Use Type does not use Pain Present Pain Reported Musculoskeletal Symptoms Abnormal Gait,Joint Pain, Limited Range of Motion,Muscle Weakness History of Falling (Recent or History of No ) Patient is completely paralyzed or No completely immobile Mental Status Oriented to own ability Is patient on oxygen? No Does patient have MUSA/SOB No Hx Sleep Apnea No Currently Taking a Beta Jung Yes: Metoprolol Can You Climb a Flight of Stairs Without Yes SOB Hx Chest Pain No Hx SOB No Hx Syncope or Dizziness No Anti-Coagulant Therapy Yes: ASA 81mg BID for aortic valve replacement Has a Media Sales Executive Yes: Dr. Mcintosh-last visit 2018, most recent appt cx'd r/ t COVID Cardiac Testing No Hx Pacemaker/ICD No Pacemaker Rep Required? No Comment Cardiac records scanned to chart. Pt has been unable to r/s due to COVID Diet Type At Home Regular dysphagia No Urinary Catheter Present No Hx Urinary Self Catheterization No Diabetes No Patient No Lactating No Hx Drug Resistant Organism No Presence of External or Internal Medical Yes: CABG x 1, rt hip Devices prosthesis Have you had any close contact with No someone diagnosed with COVID-19? Evaluation/Screening for possible COVID- Yes 19 infection completed? Marital Status Lives With spouse Prior Living Arrangements House Number of Floors (Floors) One Floor Support System Child/Children,Spouse Does the Patient Have Assistance After Yes: has MS, daughter Surgery will stay w/pt to assist Patient Discharge Plan Description Return Home Comment Pt advised possible same day discharge Feels Safe in Current Environment Yes Been Physically Hurt or Threatened By a No Person in Current Environment Do you have thoughts of harming yourself None or others? Are you currently considering suicide? No Do you have a plan to hurt yourself or No Plan others? Do You Have Any Spiritual Beliefs That No May Affect Your HC Choices? Do You Have Any Cultural Practices That No May Affect Your HC Choices? Comment Torsten Who Can We Speak to About Patient's Care Family, friends Identifying Code for Release of Patient Declines to issue Information Health Care Proxy/Next of Kin Bola () Genevieve ( daughter) Health Care Proxy Phone Number Bola: [phone] Genevieve: [phone] Emergency Contact Name Bola () Genevieve ( daughter) Emergency Contact Phone Number Bola: [phone] Genevieve: [phone] Advance Directives? Yes Advance Directives on File No Requested Patient Bring Advanced Yes Directives DOS Power of Assistant Professor Of Philosophy Yes Power of Assistant Professor Of Philosophy Name Bola () Power of Assistant Professor Of Philosophy PAC Instructions Durable medical equipment, Medications to take/avoid, Nasal antibiotic,No ETOH/ petroleum product on skin DOS, NPO,Pre-surgical wash,Sensory aids,Sturdy shoes/comfortable clothes,Do not bring valuables and remove jewelry
== END 2020-04-21 13:24 | disposition home or self-care (01) ==
LOC: OR 06:46 → AC 06:47 → ICU 08:58 → AC 23:16
PROVIDERS: Family Provider Physician Assistant Medical; PCP Physician Assistant Medical; Referring Provider Orthopaedic Surgery; Visit Provider Orthopaedic Surgery
PROC: 0SRC0JZ Replacement of Right Knee Joint with Synthetic Substitute, Open Approach (ICD-10-PCS; CPT 27447; principal; 2020-04-20 07:45)
DX: M17.11 Unilateral primary osteoarthritis, right knee (principal); I25.10 Atherosclerotic heart disease of native coronary artery without angina pectoris; I25.2 Old myocardial infarction; E78.5 Hyperlipidemia, unspecified
CPT/HCPCS: 27447; 36415; 73560; 85014; 85018; 97110; 97116; 97161; 97530; C1776; C9290; J0690; J1100; J2250; J2274; J2405; J2704; J3010

== ENCOUNTER → 2021-02-12 14:00 | Outpatient (CLI) | payer MEDICARE, OTHER, SELFPAY ==
[2020-04-20 11:27] VITALS: BMI 26.6
[2021-02-12 16:39] LABS: COVID19 -Nasal RAPID Negative (Negative)
== END ==
PROVIDERS: Family Provider Physician Assistant Medical; PCP Physician Assistant Medical; Visit Provider Student in an Organized Health Care Education/Training Program
DX: Z01.812 Encounter for preprocedural laboratory examination (principal); Z20.822 Contact with and (suspected) exposure to COVID-19
CPT/HCPCS: 87635; C9803

== ENCOUNTER 2021-02-13 07:52 | Day surgery (SDC) | payer MEDICARE, OTHER, SELFPAY ==
[2020-04-20 11:27] VITALS: BMI 26.6
[2021-02-13] MEDS: CATARACT EYE COMPOUND (10 DROPS/SYRINGE) 3 DROPS EYE-OP (08:57)
[2021-02-13] MEDS: PROPARACAINE 0.5% OPHTH SOL 2 DROPS EYE-OP (08:57)
[2021-02-13 08:59] VITALS: BP 118/65; PULSE 60; RESP 16; TEMP 36.6; O2SAT 97; BMI 24.2
--- NOTE | 2021-02-13 09:31 | PM.PREOP ---
Pre-operative Note Interval Note History & Physical reviewed/Exam performed by Physician: Yes Changes to H&P: No
--- NOTE | 2021-02-13 09:31 | PM.OP.1 ---
Operative Date/Time/Diagnoses Pre-op diagnosis: Nuclear cataract right eye Procedure & Clinicians Procedure: Cataract Surgery Same procedure as scheduled: Yes Surgeon: Parish Alvarez Anesthesia Type: MAC +/- and Sedation Operative Notes Procedure in detail: Patient brought to the operating suite. Tetracaine drops placed in the right eye. Patient was prepped and draped in sterile manner. Wire lid speculum was placed in the eye. Betadine drops were placed on the eye. This was irrigated. Lidocaine jelly was placed on the eye. A paracentesis port was created with a side-port blade. 0.1 mL 1% preservative free lidocaine was injected into the anterior chamber. The anterior chamber was deepened with viscoelastic. 2.6 mm keratome was used to create a temporal clear corneal incision. Cystotome and Utrata forceps were used to create continuous tear capsulorrhexis. Balanced salt solution was used to hydro dissect the nucleus. The phacoemulsification handpiece was inserted and the nucleus was removed using the stop and chop technique. The irrigation aspiration handpiece was inserted and the remaining cortex was removed. Anterior chamber was deepened with viscoelastic. An Varner ZCB00 intraocular lens with a power of 22.5 was injected into the capsular bag. Irrigation aspiration handpiece was inserted and the remaining viscoelastic was removed. Incision was hydrated with balanced salt solution and found to be leak free with pressure with Weck-Jennie sponges. 0.1 mL Vigamox injected anterior chamber. 0.3 mL Kenalog 10 mg was injected subconjunctivally. Lid speculum was removed. The patient left the operating room in excellent condition. Complications: none Post-operative Condition: stable Disposition: same day surgery
[2021-02-13] MEDS: LIDOCAINE 2% (GLYDO) 6 ML GEL TOP (09:51)
[2021-02-13] MEDS: BALANCED SALT IRRIG SOLN NO.2 500 ML, EPINEPHrine 1 MG IRR (09:51)
[2021-02-13] MEDS: TRIAMCINOLONE 50 MG/5 ML VIAL INJ (09:52)
[2021-02-13] MEDS: CHONDROIDTIN/SOD HYALURONATE 1.05 ML SYRINGE INTRAOCULA (09:52)
[2021-02-13] MEDS: PHENYLEPHRINE/LIDOCAINE VIAL (OR) 0.2 ML EYE-OP (09:52)
[2021-02-13] MEDS: MOXIFLOXACIN INJ 4 MG/0.8 ML VIAL 0.5 MG EYE-OP (09:52)
[2021-02-13] MEDS: TETRACAINE 0.5% OPHTH DROPS 4 ML 2 DROPS EYE-OP (09:53)
[2021-02-13 10:04] VITALS: BP 112/60; PULSE 61; RESP 12; TEMP 35.9; O2SAT 99
[2021-02-13 10:31] VITALS: BP 110/65; PULSE 69; RESP 14; TEMP 36.4; O2SAT 98
== END 2021-02-13 10:36 | disposition home or self-care (01) ==
PROVIDERS: Family Provider Physician Assistant Medical; PCP Physician Assistant Medical; Referring Provider Physician Assistant Medical; Visit Provider Ophthalmology
PROC: (CPT 66984; principal; 2021-02-13 09:45)
DX: H25.11 Age-related nuclear cataract, right eye (principal); I10 Essential (primary) hypertension
CPT/HCPCS: 66984; J0171; J2250; J3301

== ENCOUNTER → 2021-02-26 11:13 | Outpatient (CLI) | payer MEDICARE, OTHER, SELFPAY ==
[2020-04-20 11:27] VITALS: BMI 26.6
[2021-02-26 13:36] LABS: COVID19 -Nasal RAPID Negative (Negative)
== END ==
PROVIDERS: PCP Physician Assistant Medical; Visit Provider Student in an Organized Health Care Education/Training Program
DX: Z01.812 Encounter for preprocedural laboratory examination (principal); Z20.822 Contact with and (suspected) exposure to COVID-19
CPT/HCPCS: 87635; C9803

== ENCOUNTER 2021-02-27 07:54 | Day surgery (SDC) | payer MEDICARE, OTHER, SELFPAY ==
[2020-04-20 11:27] VITALS: BMI 26.6
[2021-02-27] MEDS: PROPARACAINE 0.5% OPHTH SOL 2 DROPS EYE-OP (08:33)
[2021-02-27] MEDS: CATARACT EYE COMPOUND (10 DROPS/SYRINGE) 3 DROPS EYE-OP (08:34)
[2021-02-27 08:44] VITALS: BP 128/69; PULSE 61; RESP 14; TEMP 36.8; O2SAT 100; BMI 25.0
--- NOTE | 2021-02-27 09:29 | PM.PREOP ---
Pre-operative Note Interval Note History & Physical reviewed/Exam performed by Physician: Yes Changes to H&P: No
--- NOTE | 2021-02-27 09:30 | P.OP_ITS ---
Operative Date/Time/Diagnoses Pre-op diagnosis: Nuclear Cataract Left eye Post-op diagnosis: same Procedure & Clinicians Same procedure as scheduled: Yes Surgeon: Parish Alvarez Anesthesia Type: MAC +/- and Sedation Operative Notes Procedure in detail: Patient brought to the operating suite. Tetracaine drops placed in the left eye. Patient was prepped and draped in sterile manner. Wire lid speculum was placed in the eye. Betadine drops were placed on the eye. This was irrigated. Lidocaine jelly was placed on the eye. A paracentesis port was created with a side-port blade. 0.1 mL 1% preservative free lidocaine was injected into the anterior chamber. The anterior chamber was deepened with viscoelastic. 2.6 mm keratome was used to create a temporal clear corneal incision. Cystotome and Utrata forceps were used to create continuous tear capsulorrhexis. Balanced salt solution was used to hydro dissect the nucleus. The phacoemulsification handpiece was inserted and the nucleus was removed using the stop and chop technique. The irrigation aspiration handpiece was inserted and the remaining cortex was removed. Anterior chamber was deepened with viscoe lastic. An Varner DIB00 intraocular lens with a power of 22.5 was injected into the capsular bag. Irrigation aspiration handpiece was inserted and the remaining viscoelastic was removed. Incision was hydrated with balanced salt solution and found to be leak free with pressure with Weck-Jennie sponges. 0.1 mL Vigamox injected anterior chamber. 0.3 mL Kenalog 10 mg was injected subconjunctivally. Lid speculum was removed. The patient left the operating room in excellent condition. Complications: none Post-operative Condition: stable Disposition: same day surgery
[2021-02-27] MEDS: CHONDROIDTIN/SOD HYALURONATE 1.05 ML SYRINGE INTRAOCULA (09:40)
[2021-02-27] MEDS: MOXIFLOXACIN INJ 4 MG/0.8 ML VIAL 0.5 MG EYE-OP (09:40)
[2021-02-27] MEDS: PHENYLEPHRINE/LIDOCAINE VIAL (OR) 0.2 ML EYE-OP (09:40)
[2021-02-27] MEDS: TETRACAINE 0.5% OPHTH DROPS 4 ML 2 DROPS EYE-OP (09:40)
[2021-02-27] MEDS: LIDOCAINE 2% (GLYDO) 6 ML GEL TOP (09:40)
[2021-02-27] MEDS: BALANCED SALT IRRIG SOLN NO.2 500 ML, EPINEPHrine 1 MG IRR (09:41)
[2021-02-27] MEDS: TRIAMCINOLONE 50 MG/5 ML VIAL INJ (09:41)
[2021-02-27 10:05] VITALS: BP 105/59; PULSE 58; RESP 15; TEMP 35.8; O2SAT 100
== END 2021-02-27 10:12 | disposition home or self-care (01) ==
PROVIDERS: PCP Physician Assistant Medical; Referring Provider Ophthalmology; Visit Provider Ophthalmology
PROC: (CPT 66984; principal; 2021-02-27 09:45)
DX: H25.12 Age-related nuclear cataract, left eye (principal); I10 Essential (primary) hypertension; E78.5 Hyperlipidemia, unspecified
CPT/HCPCS: 66984; J0171; J2250; J3301

== ENCOUNTER → 2023-04-14 13:42 | Outpatient (CLI) | payer MEDICARE, OTHER, SELFPAY ==
[2020-04-20 11:27] VITALS: BMI 26.6
--- NOTE | 2023-04-14 | DI.ECHO.S_ITS ---
[facility]---------+ [facility] +---------+ : : [address] : : : : [id number] : : : : Phone: [phone]---------+ Echocardiogram Report + + :Name: CALLIE MARIE Study Date: 04/14/2023 Height: 65 in : :[facility] ReadingLocation: Weight: 160 lb : : Gender: Female BSA: 1.8 m2 : :: 1940 Age: 82 yrs BP: 107/54 mmHg: :Reason For Study: PROSTHETIC HEART VALVE : :Ordering Physician: TERESA, : :MELBA Cui Performed By: Fabiana Fried : :Referring: MELBA SAENZ : + + Interpretation Summary There is mild concentric left ventricular hypertrophy. The ejection fraction is estimated to be 65-70%. Diastolic parameters suggest probable normal left ventricular diastolic function and normal filling pressures. The right ventricle is normal in size and function. There is mild mitral regurgitation. There is a well-seated bioprosthetic aortic valve. There is mild to moderate tricuspid regurgitation. The right ventricular systolic pressure is estimated to be at least 28 mmHg based on an estimated right atrial pressure of 3 mm Hg. Compared to the prior study dated 07/18/2021, the aortic valve gradients have increased however the EOA is normal.. Procedure: A two-dimensional transthoracic echocardiogram with color flow and Doppler was performed. The study quality was technically adequate. Comparison is made with the echocardiogram of 07/18/2021. The patient was in sinus rhythm with heart rates between 63-71 bpm during the exam. Left Ventricle: The left ventricular cavity is small. There is mild concentric left ventricular hypertrophy. An intracavitary gradient is suspected. The ejection fraction is estimated to be 65-70%. Diastolic parameters suggest probable normal left ventricular diastolic function and normal filling pressures. Right Ventricle: The right ventricle is normal in size and function. Atria: The left atrial size is normal. Right atrial size is normal. There is no Doppler evidence for an interatrial shunt. Mitral Valve: The mitral valve leaflets appear mildly thickened, but open well. The mitral valve leaflets are mildly calcified. There is mild mitral annular calcification. There is mild mitral regurgitation. Aortic Valve: There is a bioprosthetic aortic valve. The peak aortic velocity is 3.2 m/sec. The aortic valve mean gradient is 23 mmHg. EOA 1.3 petrology teacher?. There is trace aortic regurgitation. Tricuspid Valve: The tricuspid valve leaflets are thin and pliable. There is mild to moderate tricuspid regurgitation. The right ventricular systolic pressure is estimated to be at least 28 mmHg based on an estimated right atrial pressure of 3 mm Hg. Pulmonic Valve: The pulmonic valve is not well visualized. There is no pulmonic valvular regurgitation. Great Vessels: The aortic root is normal size. The ascending aorta could not be visualized. The IVC is of normal diameter and collapses greater than 50% with a sniff. This suggests a low right atrial pressure of 3 mm Hg. Pericardium/ Pleura There is no pericardial effusion. There is no pleural effusion. MMode/2D Measurements & Calculations LVIDd: 3.2 cm LVOT diam: 1.9 cm LVIDs: 2.1 cm Ao root diam: 2.4 cm FS: 36.0 % Ao Arch Diam (Prox Trans): 1.9 cm IVSd: 1.1 cm LVPWd: 1.1 cm LV veras. diameter/BSA (cm/m^2): 1.8 LV sys. diameter/BSA (cm/m^2): 1.2 LA A2 area: 14.2 cm2 RA long axis: 4.3 cm LA A4 area: 12.3 cm2 RA area: 13.8 cm2 LA length (vol): 4.3 cm RA vol: 37.4 ml LA vol: 34.0 ml RA : 20.8 ml/m2 LA vol index: 18.9 ml/m2 IVC diam: 1.7 cm RVD1 (basal): 3.6 cm RVD2 (mid): 3.1 cm TAPSE: 2.0 cm Doppler Measurements & Calculations Ao V2 max: 317.9 cm/sec LVOT Max Pierce: 141.8 cm/sec Ao V2 mean: 225.5 cm/sec LV V1 max P.0 mmHg Ao max P.3 mmHg LV V1 VTI: 33.7 cm Ao mean P.8 mmHg RO(I,D): 1.4 cm2 Ao V2 VTI: 66.1 cm RO(V,D): 1.2 cm2 sev ratio: 0.51 RO indexed to BSA (cm^2/m^2): 0.79 MV E max pierce: 91.9 cm/sec TR max pierce: 250.2 cm/sec MV A max pierce: 119.3 cm/sec TR max P.0 mmHg MV E/A: 0.77 PA V2 max: 109.4 cm/sec Med Peak E' Pierce: 8.0 cm/sec PA V2 mean: 72.4 cm/sec E/E' med: 11.5 PA mean P.4 mmHg Lat Peak E' Pierce: 9.0 cm/sec PA pr(Accel): 34.5 mmHg E/E' lat: 10.3 E/e' average: 10.9 MV dec time: 0.37 sec SV(LVOT): 94.0 ml Reading Physician:12:50 PM
== END ==
PROVIDERS: PCP Physician Assistant Medical; Referring Provider Internal Medicine Cardiovascular Disease; Visit Provider Internal Medicine Cardiovascular Disease
DX: Z95.2 Presence of prosthetic heart valve (principal)
CPT/HCPCS: 93306